=== PATIENT | male | born 1975 | race Caucasian/White ===

== ENCOUNTER → 2017-02-03 | Outpatient (CLI) | payer BC ==
--- NOTE | 2017-02-03 12:32 | RAD ---
Exam: Right hand 02/03/2017 at 1019 hours Indication: Fall, 8 weeks ago with swelling to the fifth digit Comparison: None available Technique: 3 views of the right hand are provided. Findings: There is no acute fracture or dislocation. No joint space narrowing. No soft tissue swelling. No osseous erosion or soft tissue gas. Bone mineralization is within normal limits. Impression: No acute fracture or dislocation.
== END | disposition home or self-care (01) ==
LOC: DXRAD 10:08
PROVIDERS: ATTEND Nurse Practitioner Family
DX: M79.641 Pain in right hand (principal); M79.644 Pain in right finger(s); M25.441 Effusion, right hand; W19.XXXD Unspecified fall, subsequent encounter
CPT/HCPCS: 73130

== ENCOUNTER → 2020-10-06 | Outpatient (CLI) | payer BC ==
[~2020-10-06] MED LIST: BUDE8.43 NS; DIPH25CA58 PO; LORA10TA3 PO
== END ==
LOC: LAB 09:00
PROVIDERS: ATTEND Nurse Anesthetist, Certified Registered
DX: Z01.812 Encounter for preprocedural laboratory examination (principal); Z20.822 Contact with and (suspected) exposure to COVID-19
CPT/HCPCS: U0003; U0005

== ENCOUNTER → 2021-01-03 | Outpatient (CLI) | payer OTHER ==
[2021-01-03 10:56] LABS: CALCIUM 9.4 mg/dL (8.5-10.1); GFR 81.6
[2021-01-03 10:57] LABS: BASO % 0 % (0-3); EOS # 0.1 x10^3/uL (0.0-0.7); EOS % 1 % (0-3); HEMOGLOBIN 16.6 g/dL (13.0-17.5); LYMPH # 1.8 x10^3/uL (1.0-4.8); LYMPH % 26 % (24-48); MEAN CORPUSCULAR HEMOGLOBIN 33 pg (25-35); MEAN CORPUSCULAR HGB CONC 35 g/dL (31-37); MEAN CORPUSCULAR VOLUME 94 fL (79-100); MONO # 0.7 x10^3/uL (0.0-1.1); MONO % 10 % (0-9); NEUT # 4.2 x10^3uL (1.8-7.7); NEUT % 62 % (31-73); PLATELET COUNT 223 x10^3/uL (140-400); RED BLOOD COUNT 5.11 x10^6/uL (4.30-5.70); WHITE BLOOD COUNT 6.8 x10^3/uL (4.0-11.0)
[2021-01-03 12:28] LABS: SEDIMENTATION RATE 3 (0-15)
[2021-01-03 20:07] LABS: RHEUMATOID FACTOR <10.0 IU/mL (0.0-13.9)
[2021-01-04 20:09] LABS: ANA INTERP Negative (.)
[2021-01-05 23:07] LABS: CYCLIC CITRULLIN PEP AB 7 units (0-19)
== END ==
LOC: LAB 10:10
DX: S46.911A Strain of unspecified muscle, fascia and tendon at shoulder and upper arm level, right arm, initial encounter (principal); L40.9 Psoriasis, unspecified; G56.21 Lesion of ulnar nerve, right upper limb; M25.50 Pain in unspecified joint; X58.XXXA Exposure to other specified factors, initial encounter; Y93.89 Activity, other specified; Y92.89 Other specified places as the place of occurrence of the external cause; Y99.8 Other external cause status
CPT/HCPCS: 36415; 80048; 85025; 85651; 86038; 86200; 86431

== ENCOUNTER → 2021-01-31 | Outpatient (CLI) | payer OTHER ==
--- NOTE | 2021-01-31 10:50 | RAD ---
INDICATION: Reason: RHINITIS, NASAL PAIN, X 4 MONTHS / Spl. Instructions: / History: . COMPARISON: None. TECHNIQUE: Axial CT images obtained through the face. One or more of the following individualized dose reduction techniques were utilized for this examinat ion: 1. Automated exposure control; 2. Adjustment of the mA and/or kV according to patient size; 3 . Use of iterative reconstruction technique. FINDINGS: There is a protrusion the posterior aspect of the calvarium. The frontal sinus, ethmoid air cells, sphenoid sinus and mastoid air cells are well aerated. There is some nasal septum deviation to the left anteriorly. No retro-orbital hematoma. IMPRESSION: * Nasal septal deviation to the left. * Paranasal sinuses are well aerated without definite evidence of sinusitis. Electronically signed by: Dedrick Jorge MD (01/31/2021 10:48 AM) [id number]
== END ==
LOC: CT 10:19
PROVIDERS: ATTEND Otolaryngology
DX: J34.2 Deviated nasal septum (principal); J00 Acute nasopharyngitis [common cold]
CPT/HCPCS: 70486

== ENCOUNTER → 2021-06-12 | Outpatient (CLI) | payer OTHER ==
--- NOTE | 2021-06-12 10:36 | RAD ---
EXAM: Left foot, 2 views. HISTORY: Pain. COMPARISON: None. FINDINGS: 2 views of the foot are obtained. There is no fracture, dislocation or subluxation. There a re bone islands within the first distal phalanx, an incidental finding. IMPRESSION: No acute osseous finding. Electronically signed by: Jayna Warren MD (06/12/2021 10:34 AM) [id number]
[2021-06-12 11:10] LABS: BASO % 1 % (0-3); EOS # 0.1 x10^3/uL (0.0-0.7); EOS % 1 % (0-3); HEMATOCRIT 46.5 % (39.0-53.0); HEMOGLOBIN 16.2 g/dL (13.0-17.5); LYMPH # 1.8 x10^3/uL (1.0-4.8); LYMPH % 29 % (24-48); MEAN CORPUSCULAR HEMOGLOBIN 33 pg (25-35); MEAN CORPUSCULAR HGB CONC 35 g/dL (31-37); MEAN CORPUSCULAR VOLUME 95 fL (79-100); MONO # 0.7 x10^3/uL (0.0-1.1); MONO % 11 % (0-9); NEUT # 3.7 x10^3uL (1.8-7.7); NEUT % 59 % (31-73); PLATELET COUNT 194 x10^3/uL (140-400); RED BLOOD COUNT 4.92 x10^6/uL (4.30-5.70); RED CELL DISTRIBUTION WIDTH 12.3 % (11.5-14.5); WHITE BLOOD COUNT 6.2 x10^3/uL (4.0-11.0)
[2021-06-12 11:32] LABS: ALBUMIN/GLOBULIN RATIO 1.1 (1.0-1.7); CALCIUM 8.9 mg/dL (8.5-10.1); CREATININE 1.1 mg/dL (0.7-1.3); GFR 73.1; POTASSIUM 4.1 mmol/L (3.5-5.1); TOTAL BILIRUBIN 0.2 mg/dL (0.2-1.0); TOTAL PROTEIN 7.8 g/dL (6.4-8.2)
[2021-06-12 13:07] LABS: SEDIMENTATION RATE 3 (0-15)
[2021-06-12 16:36] LABS: FREE T4 0.85 ng/dL (0.76-1.46)
[2021-06-12 16:37] LABS: THYROID STIM HORMONE (TSH) 7.98 uIU/mL (0.358-3.740)
== END ==
LOC: RAD 10:11
PROVIDERS: ATTEND Physician Assistant
DX: R42 Dizziness and giddiness (principal); R11.0 Nausea; M25.872 Other specified joint disorders, left ankle and foot; M79.672 Pain in left foot
CPT/HCPCS: 36415; 73620; 80053; 84439; 84443; 85025; 85651

== ENCOUNTER 2021-06-15 07:34 | Emergency (ER) | payer OTHER ==
[~2021-06-15] VITALS: Ht 170.2 cm; Wt 89.2 kg
[2021-06-15] MEDS ORDERED: ORPHENADRINE CITRATE 60 MG/2 ML VIAL. IM ONE (08:30)
[2021-06-15] MEDS ORDERED: TRAM50TA PO (08:47)
--- NOTE | 2021-06-15 08:48 | PHYS DOC ---
Past History Past Surgical History: No Surgical History Alcohol Use: Occasionally Additional Alcohol Information: 1-2 beers/noc General Adult EDM: Chief Complaint: BACK PAIN - NO INJURY HPI: HPI: Patient is a 45-year-old male coming in for right upper back pain for 4 days. Patient states that he had taken some leftover muscle relaxers he had and ibup rofen there was getting better but got worse yesterday after he was lifting weights. Denies any falls or recent trauma. No other complaints. Says he has had pain in the past that is similar but not as severe. Was also seen yesterday at urgent care and given a shot of Toradol. Review of Systems: Review of Systems: All other systems within normal limits except for as noted in the HPI Current Medications: Current Meds: Current Medications Medications (Trade) Dose Ordered Sig/Mj Start Time Stop Time Status Last Admin Dose Admin Fentanyl Citrate (Fentanyl 2ml Vial) 100 mcg 1X ONCE 06/15/21 08:30 06/15/21 08:37 DC 06/15/21 08:32 100 MCG Orphenadrine Citrate (Norflex) 60 mg 1X ONCE 06/15/21 08:30 06/15/21 08:37 DC 06/15/21 08:33 60 MG Allergies: Allergies: Allergies Coded Allergies Type Severity Reaction Last Updated Verified No Known Drug Allergies 06/15/21 No Physical Exam: PE: Constitutional: Well developed, well nourished, no acute distress, non-toxic appearance. [] HENT: Normocephalic, atraumatic, bilateral external ears normal, nose normal. [] Eyes: PERRLA, conjunctiva normal, no discharge. [] Neck: No rigidity, supple, no stridor. [] Cardiovascular: Regular rate and rhythm, brisk cap refill [] Lungs & Thorax: Non labored symmetric respirations, no tachypnea or respiratory distress [] Abdomen: Soft, nondistended. Skin: Warm, dry, no erythema, no rash. [] Back: No step-off or deformities, tenderness in upper thoracic paraspinous muscles Extremities: No deformities, range of motion grossly intact, no lower extremity edema [] Neurologic: Alert and oriented X 3, no focal deficits noted. [] Psychologic: Affect normal, judgement normal, mood normal. [] Current Patient Data: Vital Signs: Vital Signs Date Time Temp Pulse Resp B/P (MAP) Pulse Ox O2 Delivery O2 Flow Rate FiO2 06/15/21 08:32 18 99 Room Air 06/15/21 07:40 97.5 78 134/91 (105) EKG: EKG: [] Radiology/Procedures: Radiology/Procedures: [] Heart Score: C/O Chest Pain: No Risk Factors: Risk Factors: DM, Current or recent (<one month) smoker, HTN, HLP, family history of CAD, obesity. Risk Scores: Score 0 - 3: 2.5% MACE over next 6 weeks - Discharge Home Score 4 - 6: 20.3% MACE over next 6 weeks - Admit for Clinical Observation Score 7 - 10: 72.7% MACE over next 6 weeks - Early Invasive Strategies Course & Med Decision Making: Course & Med Decision Making Pertinent Labs and Imaging studies reviewed. (See chart for details) [] Dragon Disclaimer: Dragon Disclaimer: This electronic medical record was generated, in whole or in part, using a voice recognition dictation system. Departure Departure: Impression: Primary Impression: Back pain Disposition: HOME / SELF CARE / HOMELESS Condition: STABLE Referrals: [facility] (PCP) Patient Instructions: Back Pain, Adult Scripts Tramadol Hcl (TRAMADOL HCL) 50 Mg Tablet 50 MG PO PRN Q6HRS PRN for PAIN for 2 Days, #8 TAB Prov: TAYLOR GRAY MD 06/15/21 TAYLOR GRAY MD Jun 15, 2021 08:48
[2021-06-15 09:00] VITALS: BP 139/95
== END 2021-06-15 09:00 | disposition home or self-care (01) ==
LOC: ER 07:34 → MERGE 07:34 → ER 09:00
DX: M54.6 Pain in thoracic spine (principal)
CPT/HCPCS: 96372; 99284; J2360; J3010

== ENCOUNTER → 2021-08-24 | Outpatient (CLI) | payer OTHER ==
[~2021-08-24] MED LIST changes: +TRAM50TA PO
[2021-08-27 18:07] LABS: ALBUM 4.1 g/dL (2.9-4.4); ALPHA 1 0.1 g/dL (0.0-0.4); ALPHA 2 0.5 g/dL (0.4-1.0); BETA 1.2 g/dL (0.7-1.3); GAMMA 1.1 g/dL (0.4-1.8); PROTEIN TOTAL 7.1 g/dL (6.0-8.5); SPEP AG RATIO 1.4 (0.7-1.7)
== END ==
LOC: LAB 11:02
PROVIDERS: ATTEND Nurse Practitioner Family
DX: E03.9 Hypothyroidism, unspecified (principal); R20.0 Anesthesia of skin; R20.2 Paresthesia of skin; M25.50 Pain in unspecified joint; G89.29 Other chronic pain
CPT/HCPCS: 36415; 82607; 82746; 84165; 84443; 85651; 86038; 86141

== ENCOUNTER → 2021-09-18 | Outpatient (CLI) | payer OTHER ==
--- NOTE | 2021-09-20 11:43 | RAD ---
Study: XR HAND 3 VIEWS Indication: Pain. Arthritis. Comparison: Right hand radiographs 02/03/2017 Findings: Right hand: Mild arthrosis at the thumb CMC joint. Trace early degenerative changes at DIP joints. No joint space collapse. No erosive change or periostitis. Carpal and distal radioulnar joint alignment is anatomic . Unremarkable soft tissues. Left hand: Mild thumb CMC arthrosis. Minimal early degenerative changes at DIP joints. No joint space collapse. No erosive change or periostitis. Carpal and distal radioulnar joint alignment is anatomic. Unremarka ble soft tissues. 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 No radio graphic evidence for an inflammatory arthritis. Electronically signed by: EVIE BENAVIDES MD (09/19/2021 10:08 AM) [id number]
--- NOTE | 2021-09-20 11:43 | RAD ---
Study: XR KNEE 3 VIEWS Indication: Pain. Arthritis. Comparison: Left knee MRI 10/23/2020 Findings: Left knee: Maintained femorotibial compartment joint space height. No significant osteophyte formation. No fract ure or malalignment. Small proximal tibia bone island. No joint effusion. Right knee: Maintained femorotibial compartment joint space height. No significant osteophyte formation. No fract ure or malalignment. No joint effusion. Impression: Right and left knees: No significant arthrosis at either knee. No joint effusion. Electronically signed by: EVIE BENAVIDES MD (09/19/2021 10:10 AM) [id number]
--- NOTE | 2021-09-20 11:43 | RAD ---
Study: XR HIP_RT 2-3VIEWS Indication: Pain. Arthritis. Comparison: None. Findings: Hip joint space height is maintained. Adequate femoral head/neck offset. No fracture, stress reaction or radiographic evidence for avascular necrosis. Unremarkable pubic symphysis and right SI joint. Surgical clips project over the scrotum. Impression: No significant arthrosis at the right hip with maintained joint space height. Electronically signed by: EVIE BENAVIDES MD (09/19/2021 10:05 AM) [id number]
== END ==
LOC: RAD 07:27
PROVIDERS: ATTEND Internal Medicine Rheumatology
DX: M19.041 Primary osteoarthritis, right hand (principal); M19.042 Primary osteoarthritis, left hand
CPT/HCPCS: 73502; 73130-50; 73562-50